=== PATIENT | female | born 1955 | race Hispanic/Latino ===

== ENCOUNTER 2021-05-30 18:30 | Emergency (ER) | payer MEDICARE ==
[2021-05-30 18:59] VITALS: BP 185/77
--- NOTE | 2021-05-30 20:40 | XRay Report ---
LEFT KNEE 4 VIEWS INDICATION / CLINICAL INFORMATION: LT KNEE PAIN COMPARISON: None available. FINDINGS: BONES and JOINT(S): No acute fracture or subluxation. No significant arthritis. SOFT TISSUES: No significant abnormality. ADDITIONAL FINDINGS: None. IMPRESSION: 1. No acute findings. Signer Name: Gabe Hoskins MD Signed: 05/30/2021 8:36 PM Workstation Name: [id number]
--- NOTE | 2021-05-30 20:42 | XRay Report ---
LEFT HIP 2 VIEWS INDICATION / CLINICAL INFORMATION: LT HIP PAIN COMPARISON: None available. FINDINGS: BONES and JOINT(S): No acute fracture or subluxation. No significant arthritis. Lower lumbar fusion i s unremarkable as seen. SOFT TISSUES: No significant abnormality. ADDITIONAL FINDINGS: None. IMPRESSION: 1. No acute findings. Signer Name: Gabe Hoskins MD Signed: 05/30/2021 8:38 PM Workstation Name: [email or web address]
--- NOTE | 2021-05-30 21:12 | Vascular Lab Report ---
DUPLEX DOPPLER LOWER EXTREMITY VEINS, LEFT INDICATION / CLINICAL INFORMATION: Left leg pain. TECHNIQUE: Duplex doppler imaging was performed through the veins of the left lower extremity using venous compr ession and other maneuvers. COMPARISON: None available. FINDINGS: LEFT COMMON FEMORAL VEIN: Negative. LEFT FEMORAL VEIN: Negative. LEFT POPLITEAL VEIN: Negative. LEFT CALF VEINS: Negative. ADDITIONAL FINDINGS: None. IMPRESSION: 1. No sonographic evidence for DVT in the left lower extremity. Signer Name: Gabe Hoskins MD Signed: 05/30/2021 9:08 PM Workstation Name: [id number]
--- NOTE | 2021-05-30 22:41 | Emergency Department Report ---
ED Extremity Problem HPI - General Chief complaint: Extremity Problem,Nontraumatic Stated complaint: EXTREME PAIN IN LT LEG Source: patient Mode of arrival: Ambulatory Limitations: No Limitations - History of Present Illness Initial comments: Patient is a 65-year-old white female with a history of chronic low back pain, chronic degenerative joint disease, and asthma who presents to the ED with complaint of acute exacerbation of her chronic pain characterized by severe nontraumatic left hip and left knee pain as well as left lower leg pain for the last 1 week, worse in the last 12 hours. Patient states that she usually goes to pain clinic and takes Roxicodone and MS Contin for pain but that she has been taking these medications with no relief. Patient states that about 12 hours ago the pain got worse and she decided to come to the ED for evaluation. Patient denies dizziness, syncope, fall, chest pain or shortness of breath, numbness and tingling or weakness of lower lower extremities bilaterally, fever, chills, heavy lifting, traumatic injury, nausea and vomiting or abdominal pain. MD Complaint: extremity pain (Left leg, left hip and knee pain) -: Sudden, week(s) (1) Location: left, lower extremity (left knee, lower leg and hip pain) History of Same: Yes -: Yes arthralgia (left thigh, left hip, left knee and leg pains) Severity scale (0 -10): 8 Quality: aching, sharp Consistency: constant Improves with: nothing Worsens with: weight bearing, walking, exertion, palpation Associated Symptoms: denies other symptoms, arthralgias (left knee and hip pain). denies: chest pain, shortness of breath, fever, myalgias - Related Data Previous Rx's Medication Instructions Recorded Last Taken Type Baclofen 20 mg PO Q12H PRN #30 tablet 05/30/21 Unknown Rx Allergies Allergy/AdvReac Type Severity Reaction Status Date / Time aspirin Allergy Unknown Verified 05/30/21 18:53 doxycycline Allergy Nausea Verified 05/30/21 18:52 erythromycin base Allergy Nausea Verified 05/30/21 18:51 imipramine Allergy Unknown Verified 05/30/21 18:55 levofloxacin [From Levaquin] Allergy Itching Verified 05/30/21 18:52 Penicillins Allergy Hives Verified 05/30/21 18:51 pentazocine [From Talwin] Allergy Unknown Verified 05/30/21 18:54 celecoxib [From Celebrex] AdvReac Unknown Verified 05/30/21 18:50 flouride Allergy Nausea Uncoded 05/30/21 18:53 ED Review of Systems ROS: Stated complaint: EXTREME PAIN IN LT LEG Other details as noted in HPI Constitutional: denies: chills, fever Eyes: denies: eye pain, eye discharge, vision change ENT: denies: ear pain, throat pain Respiratory: denies: cough, shortness of breath, wheezing Cardiovascular: denies: chest pain, palpitations Endocrine: no symptoms reported Gastrointestinal: denies: abdominal pain, nausea, diarrhea Genitourinary: denies: urgency, dysuria, discharge Musculoskeletal: arthralgia (left leg, left knee and hip pains). denies: back pain, joint swelling Skin: denies: rash, lesions Neurological: denies: headache, weakness, paresthesias Psychiatric: denies: anxiety, depression Hematological/Lymphatic: denies: easy bleeding, easy bruising ED Past Medical Hx - Past Medical History Previous Medical History?: Yes Hx Asthma: Yes Additional medical history: chronic pain, fatty liver - Surgical History Past Surgical History?: Yes Additional Surgical History: 4 surgeries right knee, 2 knee replacements, 4 malignant melanoma, 2 back surgeries, neck fusion, 2 c-sections, hyst, tonsilect adrián, - Medications Home Medications: Home Medications Medication Instructions Recorded Confirmed Last Taken Type Baclofen 20 mg PO Q12H PRN #30 tablet 05/30/21 Unknown Rx ED Physical Exam - General Limitations: No Limitations General appearance: alert, in no apparent distress - Head Head exam: Present: atraumatic, normocephalic, normal inspection - Eye Eye exam: Present: normal appearance, PERRL, EOMI Pupils: Present: normal accommodation - ENT ENT exam: Present: normal exam, normal orophraynx, mucous membranes moist, TM's normal bilaterally, normal external ear exam - Neck Neck exam: Present: normal inspection, full ROM - Respiratory Respiratory exam: Present: normal lung sounds bilaterally. Absent: respiratory distress, wheezes, rales, rhonchi, chest wall tenderness, accessory muscle use, decreased breath sounds - Cardiovascular Cardiovascular Exam: Present: regular rate, normal rhythm, normal heart sounds. Absent: systolic murmur, diastolic murmur, rubs, gallop - GI/Abdominal GI/Abdominal exam: Present: soft, normal bowel sounds. Absent: tenderness, guarding, rebound, hyperactive bowel sounds, organomegaly - Extremities Exam Extremities exam: Present: normal inspection, full ROM, tenderness (Palpable left knee, left lower leg and thigh as well as left hip tenderness), normal capillary refill, calf tenderness (Left calf tenderness). Absent: pedal edema, joint swelling - Back Exam Back exam: Present: normal inspection, full ROM, tenderness (Palpable lumbosacral paraspinal musculoskeletal tenderness), muscle spasm, paraspinal tenderness. Absent: CVA tenderness (R), CVA tenderness (L), vertebral tenderness - Neurological Exam Neurological exam: Present: alert, oriented X3, CN II-XII intact, normal gait, reflexes normal - Psychiatric Psychiatric exam: Present: normal affect, normal mood - Skin Skin exam: Present: warm, dry, intact, normal color. Absent: rash ED Course Vital Signs 05/30/21 05/30/21 18:41 23:05 Temperature 97.4 F L Pulse Rate 81 82 Respiratory 19 17 Rate Blood Pressure 185/77 O2 Sat by Pulse 94 97 Oximetry ED Medical Decision Making - Radiology Data Radiology results: report reviewed, image reviewed [facility] [address] [place] [address] XRay Report Signed Patient: YUSUF OLIVARES MR#: [id number] : 1955 Acct:[id number] Age/Sex: 65 / F ADM Date: 05/30/21 Loc: ED Attending Dr: Ordering Physician: CASSIE HOOPER Date of Service: 05/30/21 Procedure(s): XR knee 3V LT Accession Number(s): [id number] cc: CASSIE HOOPER Fluoro Time In Minutes: LEFT KNEE 4 VIEWS INDICATION / CLINICAL INFORMATION: LT KNEE PAIN COMPARISON: None available. FINDINGS: BONES and JOINT(S): No acute fracture or subluxation. No significant arthritis. SOFT TISSUES: No significant abnormality. ADDITIONAL FINDINGS: None. IMPRESSION: 1. No acute findings. Signer Name: Gabe Hoskins MD Signed: 05/30/2021 8:36 PM Workstation Name: [id number] Transcribed By: MN Dictated By: Gabe Hoskins MD Electronically Authenticated By: Gabe Hoskins MD Signed Date/Time: 05/30/212035 DD/ 35 TD/TT: [facility] [address] [place] [address] XRay Report Signed Patient: YUSUF OLIVARES MR#: [id number] : 1955 Acct:[id number] Age/Sex: 65 / F ADM Date: 05/30/21 Loc: ED Attending Dr: Ordering Physician: CASSIE HOOPER Date of Service: 05/30/21 Procedure(s): XR hip 2-3V LT Accession Number(s): [id number] cc: CASSIE HOOPER Fluoro Time In Minutes: LEFT HIP 2 VIEWS INDICATION / CLINICAL INFORMATION: LT HIP PAIN COMPARISON: None available. FINDINGS: BONES and JOINT(S): No acute fracture or subluxation. No significant arthritis. Lower lumbar fusion is unremarkable as seen. SOFT TISSUES: No significant abnormality. ADDITIONAL FINDINGS: None. IMPRESSION: 1. No acute findings. Signer Name: Gabe Hoskins MD Signed: 05/30/2021 8:38 PM Workstation Name: [id number] Transcribed By: MN Dictated By: Gabe Hoskins MD Electronically Authenticated By: Gabe Hoskins MD Signed Date/Time: 05/30/212037 DD/ 36 TD/TT: [facility] [address] [place] [address] Vascular Lab Report Signed Patient: YUSUF OLIVARES MR#: [id number] : 1955 Acct:[id number] Age/Sex: 65 / F ADM Date: 05/30/21 Loc: ED Attending Dr: Ordering Physician: CASSIE HOOPER Date of Service: 05/30/21 Procedure(s): VL venous duplex LE LT Accession Number(s): [id number] cc: CASSIE HOOPER DUPLEX DOPPLER LOWER EXTREMITY VEINS, LEFT INDICATION / CLINICAL INFORMATION: Left leg pain. TECHNIQUE: Duplex doppler imaging was performed through the veins of the left lower extremity using venous compression and other maneuvers. COMPARISON: None available. FINDINGS: LEFT COMMON FEMORAL VEIN: Negative. LEFT FEMORAL VEIN: Negative. LEFT POPLITEAL VEIN: Negative. LEFT CALF VEINS: Negative. ADDITIONAL FINDINGS: None. IMPRESSION: 1. No sonographic evidence for DVT in the left lower extremity. Signer Name: Gabe Hoskins MD Signed: 05/30/2021 9:08 PM Workstation Name: [id number] Transcribed By: MN Dictated By: Gabe Hoskins MD Electronically Authenticated By: Gabe Hoskins MD Signed Date/Time: 05/30/212107 DD/ 06 TD/TT: - Medical Decision Making This is a 65-year-old white female with a history of chronic low back pain, chronic degenerative joint disease, and asthma who presents to the ED with complaint of acute exacerbation of her chronic pain characterized by severe nontraumatic left hip and left knee pain as well as left lower leg pain for the last 1 week, worse in the last 12 hours. Patient states that she usually goes to pain clinic and takes Roxicodone and MS Contin for pain but that she has been taking these medications with no relief. Patient states that about 12 hours ago the pain got worse and she decided to come to the ED for evaluation. In the ED, patient is alert and oriented x3 and is not in any distress but appears to be in pain. Patient was treated for pain in the ED. Left leg Doppler ultrasound showed no sonographic evidence of DVT. Left hip and left knee x-ray showed no acute fractures or subluxations. On reevaluation, patient's pain is well controlled medications. Patient will discharge home and advised to continue taking her previously prescribed pain medications and to follow-up with her primary care physician in 2 to 3 days days for reevaluation, or return to the ED immediately if symptoms get worse. - Differential Diagnosis osteoarthritis; chronic pain; muscle spasm; muscle strain; DVT Critical care attestation.: If time is entered above; I have spent that time in minutes in the direct care of this critically ill patient, excluding procedure time. ED Disposition Clinical Impression: Muscle spasm of left lower extremity Muscle strain of left lower leg Qualifiers: Encounter type: initial encounter Qualified Code(s): S86.912A - Strain of unspecified muscle(s) and tendon(s) at lower leg level, left leg, initial encounter Chronic low back pain with sciatica Qualifiers: Back pain laterality: bilateral Sciatica laterality: bilateral sciatica Qualified Code(s): M54.42 - Lumbago with sciatica, left side; M54.41 - Lumbago with sciatica, right side; G89.29 - Other chronic pain Disposition: 01 HOME / SELF CARE / HOMELESS Is pt being admited?: No Does the pt Need Aspirin: No Condition: Stable Instructions: Muscle Cramps and Spasms, [id number], Muscle Strain, [id number], Chronic Back Pain, [id number] Additional Instructions: Left knee and left hip x-rays showed no acute fractures or subluxations. The Doppler left lower leg ultrasound showed no evidence of DVT. Therefore your symptoms are likely due to muscle spasm or muscle strain or complications from your chronic low back pain with sciatica. Therefore take your regular pain medications at home with muscle relaxants, follow-up with your primary care physician in 3 to 5 days for reevaluation. Return to the ED immediately if symptoms get worse. Prescriptions: Baclofen 20 mg PO Q12H PRN #30 tablet PRN Reason: Muscle Spasm Referrals: [facility] [Provider Group] - 3-5 Days Time of Disposition: 22:44 Print Language: SRI LANKAN
[2021-05-30] MEDS ORDERED: HYDROmorphone 1 MG/1 ML INJ IM ONE (22:46)
[2021-05-30] MEDS ORDERED: ONDANSETRON 4 MG ODT TAB PO ONE (22:46)
== END 2021-05-30 23:05 | disposition home or self-care (01) ==
LOC: ED 18:30
DX: S86.912A Strain of unspecified muscle(s) and tendon(s) at lower leg level, left leg, initial encounter (principal); M62.838 Other muscle spasm; M54.40 Lumbago with sciatica, unspecified side; X58.XXXA Exposure to other specified factors, initial encounter; Y93.89 Activity, other specified; Y92.89 Other specified places as the place of occurrence of the external cause; Y99.8 Other external cause status
CPT/HCPCS: 73502; 73562; 93971; 96372; 99284; J1170; Q0162